=== PATIENT | female | born 1985 | race Caucasian/White ===

== ENCOUNTER 2020-12-14 11:46 | Emergency (ER) | payer OTHER ==
[~2020-12-14] VITALS: Ht 172.7 cm; Wt 111.7 kg
[2020-12-14 12:50] VITALS: BP 136/57
--- NOTE | 2020-12-14 13:20 | RAD ---
Exam performed: Left hand 3 views. Indication: Pain. Left fifth and fourth and fifth digit laceration, glass injury Date of Service: 12/14/2020 Comparison: None available Discussion: PA, oblique lateral radiographs of the hand reveal the osseous structures to be intact and well align ed. The joint spaces are well-preserved. The articular margins are smooth. No soft tissue swelling or foreign bodies detected. Impression: Radiographically normal left hand. Electronically signed by: Alyce Borrego MD (12/14/2020 1:18 PM) [facility]
[2020-12-14] MEDS ORDERED: LIDOCAINE 2% Multi-Dose 20 ML VIAL. IJ ONE (13:30)
[2020-12-14] MEDS ORDERED: DIPH,PERTUSS(ACELL),TET VAC/PF 0.5 ML SYRINGE. VAX IM ONE (13:30)
--- NOTE | 2020-12-14 13:32 | ED.ADGEN ---
Past Medical History Additional Past Medical Histor: PCOS, blocked fallopian tubes Past Surgical History: Tonsillectomy Smoking Status: Never Smoker Alcohol Use: Occasionally Drug Use: None General Adult EDM: Chief Complaint: LACERATION/AVULSION HPI: HPI: Patient is a 35 year old female who presents emergency department with complaints of lacerations to the volar aspect of the fourth and fifth digits of her left hand. Patient states she was cleaning the plates on a cupcake tray when the glass candle carlin that the plates were glued to shattered. Glass from the broken carlin cut her hand. She reports her last tetanus shot was 6 years ago. She denies any numbness, tingling, or decreased sensation of the affected digits. Patient is dominantly right-handed. She currently rates her discomfort a 5 or 7 on the pain scale, she denies any alleviating factors, pain is worse with bending and movement. Patient denies any decreased range of motion of the affected digits. Review of Systems: Review of Systems: Complete ROS is negative unless otherwise noted in HPI. Current Medications: Current Medications Medications (Trade) Dose Ordered Sig/Prudencio Start Time Stop Time Status Last Admin Dose Admin Diphtheria/ Tetanus/Acell Pertussis (ADACEL TDap SYRINGE) 0.5 ml ONCE ONCE 12/14/20 13:30 12/14/20 13:31 DC 12/14/20 14:26 0.5 ML Lidocaine HCl (Lidocaine 2% 20ml Vial) 20 ml 1X ONCE 12/14/20 13:30 12/14/20 13:31 DC 12/14/20 14:00 20 ML Allergies: Allergies: Allergies Coded Allergies Type Severity Reaction Last Updated Verified latex Allergy Intermediate swelling 12/14/20 Yes Physical Exam: PE: See Above Constitutional: Well developed, well nourished, no acute distress, non-toxic appearance. [] HENT: Normocephalic, atraumatic, bilateral external ears normal, nose normal. [] Eyes: PERRLA, EOMI, conjunctiva normal, no discharge. [] Neck: Normal range of motion, no stridor. [] Cardiovascular:Heart rate regular rhythm Lungs & Thorax: Respirations even and unlabored, no retractions, no respiratory distress Skin: Warm, dry, no erythema, no rash; 3 mm linear laceration between the DIP and the PIP on the volar aspect of the fourth digit of the left hand, no active bleeding, no visible foreign body; 3 cm irregular flap from the DIP to the PIP of the left fifth digit on the volar aspect from the DIP to the PIP, no visible foreign body, no active bleeding. [] Extremities: Full extension and flexion of the left fourth and fifth digits, strength 5/5, cap refill less than 2 seconds, no bony tenderness or deformity, no cyanosis, ROM intact, no edema. [] Neurologic: Alert and oriented X 3, normal motor, normal sensory, no focal deficits noted. [] Psychologic: Affect normal, judgement normal, mood normal. [] Current Patient Data: Vital Signs: Vital Signs Date Time Temp Pulse Resp B/P (MAP) Pulse Ox O2 Delivery O2 Flow Rate FiO2 12/14/20 12:50 97.5 87 18 136/57 (83) 96 Room Air 97.5 EKG: EKG: [] Heart Score: C/O Chest Pain: No Risk Scores: Score 0 - 3: 2.5% MACE over next 6 weeks - Discharge Home Score 4 - 6: 20.3% MACE over next 6 weeks - Admit for Clinical Observation Score 7 - 10: 72.7% MACE over next 6 weeks - Early Invasive Strategies Radiology/Procedures: Radiology/Procedures: PROCEDURE: HAND LEFT 3V Exam performed: Left hand 3 views. Indication: Pain. Left fifth and fourth and fifth digit laceration, glass injury Date of Service: 12/14/2020 Comparison: None available Discussion: PA, oblique lateral radiographs of the hand reveal the osseous structures to be intact and well aligned. The joint spaces are well-preserved. The articular margins are smooth. No soft tissue swelling or foreign bodies detected. Impression: Radiographically normal left hand.[] Laceration Repairs by me: Anesthesia: 2% lidocaine locally Location: Fourth digit left hand volar mass Tendon/Joint/Nerves: No injury Foreign body: None detected after copious irrigation and exploration with NS and chlorhexidine Technique: 1 Simple Interrupted Suture with 4-0 Ethilon Complexity: No subcutaneous sutures/mucosal repair/edge excision Post Closure Length: 3 mm Anesthesia: 2% lidocaine locally Location: Fifth digit left hand volar aspect Tendon/Joint/Nerves: No injury Foreign body: None detected after copious irrigation and exploration with NS and chlorhexidine Technique: 6 simple Interrupted Sutures with 4-0 Ethilon Complexity: No subcutaneous sutures/mucosal repair/edge excision Post Closure Length: 3 cm Patient's bleeding was easily controlled in the department and there is no indication of anemia. No evidence of compartment syndrome, neurologic injury, vascular injury, open joint, tendon laceration, or foreign body. Patient is appropriate for outpatient follow up. [] Course & Med Decision Making: Course & Med Decision Making Pertinent Labs and Imaging studies reviewed. (See chart for details) [] Dragon Disclaimer: Dragon Disclaimer: This electronic medical record was generated, in whole or in part, using a voice recognition dictation system. Departure Departure Impression: Primary Impression: Need for Tdap vaccination Additional Impressions: Laceration of left little finger without foreign body without damage to nail Laceration of left ring finger w/o foreign body w/o damage to nail Disposition: 01 HOME / SELF CARE / HOMELESS Condition: STABLE Referrals: NON,STAFF (PCP) Patient Instructions: Laceration Care, Adult, [id number] Additional Instructions: Fill the prescription and take it as directed. Keep the area clean and dry. You may take Tylenol or ibuprofen as needed for pain. Keep the dressing that was placed today on for 24 hours then change the dressing twice a day after washing with soap and water. Wear the aluminum finger splint until the sutures have been removed.. Follow-up with your primary care doctor, or return to the emergency room in 10-14 days to have the sutures removed, sooner if you develop signs of infection including: redness, warmth, drainage, or a fever. Scripts Cephalexin (KEFLEX) 750 Mg Capsule 1 CAP PO TID for 7 Days, #21 CAP 0 Refills Prov: JARETT [facility]/SURGERY REGISTERED NURSE 12/14/20 Problem Qualifiers Additional Impressions: Laceration of left little finger without foreign body without damage to nail Encounter type: initial encounter Qualified Codes: S61.217A - Laceration without foreign body of left little finger without damage to nail, initial encounter Laceration of left ring finger w/o foreign body w/o damage to nail Encounter type: initial encounter Qualified Codes: S61.215A - Laceration without foreign body of left ring finger without damage to nail, initial encounter JARETT [facility]SURGERY REGISTERED NURSE December 14, 2020 13:32
[2020-12-14] MEDS ORDERED: CEPH750C9 PO (14:17)
== END 2020-12-14 14:35 | disposition home or self-care (01) ==
LOC: ER 11:46
DX: S61.217A Laceration without foreign body of left little finger without damage to nail, initial encounter (principal); S61.215A Laceration without foreign body of left ring finger without damage to nail, initial encounter; Z91.040 Latex allergy status; Y93.89 Activity, other specified; W25.XXXA Contact with sharp glass, initial encounter; Y92.89 Other specified places as the place of occurrence of the external cause; Y99.8 Other external cause status
CPT/HCPCS: 12002; 73130; 90471; 90715; 99283